=== PATIENT | male | born 1945 ===

== ENCOUNTER 2016-07-30 12:28 | Inpatient (IN) | payer OTHER, MEDICAID | END 2016-07-30 17:51 | DRG 950 | LOC: BREH 14:08 | PROVIDERS: ADMIT Internal Medicine; ATTEND Internal Medicine | DX: S06.5X0D Traumatic subdural hemorrhage without loss of consciousness, subsequent encounter (principal); Z53.29 Procedure and treatment not carried out because of patient's decision for other reasons ==